=== PATIENT | female | born 1970 | race Caucasian/White ===

== ENCOUNTER 2018-05-02 10:54 | Outpatient (CLI) | payer BC ==
--- NOTE | 2018-05-02 13:19 | MRI ---
MRI CERVICAL SPINE: Date: 05/02/18 PROVIDED CLINICAL HISTORY: Cervical radiculopathy. FINDINGS: Cervical alignment appears normal. Vertebral body heights appear preserved. No focal concerning regio nal marrow signal abnormality is evident. The visualized posterior fossa, cervicomedullary junction, and cervical spinal cord demonstrate normal signal and morphology. At C2-3, there is no significant central canal or foraminal narrowing apparent. At C3-4, there is no significant central canal or foraminal narrowing apparent. At C4-5, there is a right subarticular disc herniation with effacement of the ventral subarachnoid sp osvaldo and mild flattening of the left ventral hemicord. This produces potential for impingement on the exiting left C5 nerve root. No significant right foraminal narrowing. At C5-6, there is no significant central canal or foraminal narrowing apparent. At C6-7, there is a small central disc protrusion. There is mild effacement of the ventral subarachno id space. No foraminal narrowing apparent. At C7-T1, there is no significant central canal or foraminal narrowing apparent. IMPRESSION: Disc herniation at C4-5 as described above. POS: LOGAN
== END 2018-05-02 10:55 | disposition home or self-care (01) ==
LOC: TBSIIMAG 10:54
PROVIDERS: ATTEND Nurse Practitioner Family
DX: M50.121 Cervical disc disorder at C4-C5 level with radiculopathy (principal)
CPT/HCPCS: 72141

== ENCOUNTER 2018-05-02 13:19 | Outpatient (CLI) | payer BC | END 2018-05-02 13:20 | disposition home or self-care (01) | LOC: BICMAMMO 13:19 | DX: Z12.31 Encounter for screening mammogram for malignant neoplasm of breast (principal) | CPT/HCPCS: 77063; 77067 ==

== ENCOUNTER 2019-04-17 09:49 | Outpatient (CLI) | payer BC ==
--- NOTE | 2019-04-17 10:08 | RAD ---
EXAM: 3 views of the right shoulder HISTORY: Shoulder pain COMPARISON: None FINDINGS: There is no evidence of acute fracture or dislocation. No degenerative changes are present. No soft tissue swelling is seen. The visualized thorax is unremarkable. IMPRESSION: No evidence of acute osseous abnormality.
== END 2019-04-17 09:50 | disposition home or self-care (01) ==
LOC: RAD-FRANK 09:49
PROVIDERS: ATTEND Nurse Practitioner Family
DX: M25.511 Pain in right shoulder (principal)